=== PATIENT | male | born 2000 | race Caucasian/White ===

== ENCOUNTER 2021-01-28 06:52 | Outpatient (RCR) | payer BC, SELFPAY | END 2021-03-16 23:59 | LOC: IMMUN 06:52 | PROVIDERS: PCP Pediatrics; Referring Provider Family Medicine; Visit Provider Family Medicine | DX: Z23 Encounter for immunization (principal) | CPT/HCPCS: 0001A; 0002A; 91300 ==

== ENCOUNTER 2021-05-29 01:18 | Emergency (ER) | payer BC, SELFPAY ==
[2021-05-29 01:22] VITALS: BP 152/97; PULSE 112; RESP 16; TEMP 36.6; O2SAT 99; BMI 19.8
--- NOTE | 2021-05-29 01:32 | RAD_ITS ---
STUDY: X-RAY - LEFT FOOT CLINICAL: Male, 20 years old. Injury -- attn: 5th toe TECHNIQUE: 3 view(s) of the foot. COMPARISON: None. FINDINGS: Normal talus, calcaneus, and tarsal bones. Normal visualized subtalar, talonavicular, calcaneocuboid, tarsal and tarsometatarsal articulations. Normal metatarsi. Normal metatarsophalangeal joint of the great toe. Normal tibial and fibular sesamoid bones. Normal interphalangeal joint of the great toe. Normal phalanges of the great toe. Normal second through fifth metatarsophalangeal joints. Normal interphalangeal joints and phalanges of the lesser toes. The soft tissue structures are unremarkable. There is no demonstrated fracture. RAD/Foot min 3 Views IMPRESSION: Normal x-ray examination of the foot. Electronically Signed: Eliseo Bhagat MD at 2:05 EDT Tel , Service support ,
--- NOTE | 2021-05-29 01:33 | ED.VIS.LOWEX ---
HPI History of Present Illness Chief Complaint: Lower Extremity Injury Informant: patient Occured/Mechanism Mechanism/Context: Yes blunt trauma Comment: Accidentally ran into the corner of his door with his left small toe Onset/Context/Timing Context: Sudden Onset Timing: Continuous Quality of Pain: Aching and Throbbing Location: Left small toe Current Severity: Moderate Maximum Severity: Severe Worsened by: Walking, palpation, movement Relieved by: Remaining still Associated Symptoms Associated Symptoms: Negative for Parasthesia, Weakness and Loss of Funtion Narrative Narrative: Patient thinks his toe bent underneath his foot and in a varus type deformity when he accidentally hit it against his door. No bleeding but it is bruised. [facility] Medical History ADHD Anxiety Bipolar disorder Depression Home Medications dextroamphetamine-amphetamine [Adderall XR] 5 mg PO DAILY 05/29/21 [History Last Taken Unknown] sertraline 50 mg PO DAILY 05/29/21 [History Last Taken Unknown] Allergy/AdvReac Type Severity Reaction Status Date / Time bee venom protein (honey bee) Allergy Anaphylaxis Verified 05/29/21 01:19 Social History Smoking Status: Never smoker ROS ROS ED Constitutional Constitutional ED: Denies chills or fever(s) Musculoskeletal Musculoskeletal: Reports extremity pain; Denies neck pain Integumentary Denies Abrasions, rash or wounds Neurologic Neurologic: Denies paresthesias or weakness EXAM Physical Exam Const Vital Signs: 05/29/21 01:22 Temperature 97.9 F Temperature Source Temporal Pulse Rate 112 H Respiratory Rate 16 Blood Pressure 152/97 H Blood Pressure Mean 115 Pulse Ox 99 Positive well nourished and well developed General Appearance ED: well developed and NAD Neck full ROM and supple Back/Spine normal ROM and normal to inspection Extremity Extremity Narrative: Entire left little toe is very tender and swollen, no deformities, ecchymosis progresses to around the MTPJ, the nearby joints are nontender and nearby toes are nontender. Midfoot is nontender, base of the fifth metatarsal is nontender. No other injuries. Neuro oriented x3, no focal motor deficits and no sensory deficits noted Sensorium / Orientation: alert Psych mental status grossly normal and thought process normal Skin no wounds Skin Narrative: Left little toe: Skin intact, significant ecchymosis and swelling. Rashes: no rashes MDM MDM MDM Narrative Medical decision making narrative: My interpretation 3 view x-ray of the left foot shows no acute fracture or dislocation. There is a question of a very small nondisplaced crack at the end of the tuft but it is difficult to see with the overlying nail even on multiple views, and there is no cortical disruption so I think it is probably not a fracture. This area is no more tender than the rest of his toe. Placed in a postop shoe, given Naprosyn, and instructions for supportive care. Able to walk out of ED without any difficulty w/ shoe. Radiography Diagnostic Testing: Radiology Impression Foot X-Ray 05/29/21 01:32 IMPRESSION: Normal x-ray examination of the foot. Electronically Signed: Eliseo Bhagat MD at 2:05 EDT Tel , Service support , Discharge Plan Triage Chief Complaint: Lower Extremity Injury ED Provider: Marcial Almonte Dx/Rx/DC Orders Clinical Impression: Contusion of fifth toe, left Instructions: ED Foot Contusion Prescriptions: No Action sertraline 50 mg tablet 50 mg PO DAILY RF: 0 dextroamphetamine-amphetamine [Adderall XR] 5 mg Capsule,Extended Release 24hr 5 mg PO DAILY RF: 0 Primary Care Provider: Edilson Coreas Referrals: Edilson Coreas MD [Primary Care Provider] - Debra Lechuga DPM [STAFF PHYSICIAN] - As Needed Activity Restrictions/Additional Instructions: Take ibuprofen as needed for pain, ice affected area when resting to limit bruising and swelling. Use postop shoe for as long as you need to limit bending of the toes while walking. Disposition Disposition: Home, Self Care Discharge Date/Time: 05/29/21 02:14
[2021-05-29] MEDS: Naproxen 250 MG Tablet 500 MG PO (02:09)
== END 2021-05-29 02:14 | disposition home or self-care (01) ==
LOC: ED 02:02
PROVIDERS: Emergency Provider Emergency Medicine; PCP Pediatrics
DX: S90.122A Contusion of left lesser toe(s) without damage to nail, initial encounter (principal); W22.09XA Striking against other stationary object, initial encounter; Y93.9 Activity, unspecified; Y92.9 Unspecified place or not applicable; Y99.9 Unspecified external cause status; F31.9 Bipolar disorder, unspecified; F41.9 Anxiety disorder, unspecified; F90.9 Attention-deficit hyperactivity disorder, unspecified type; Z79.899 Other long term (current) drug therapy
CPT/HCPCS: 73630; 99283

== ENCOUNTER 2021-06-10 09:00 | Outpatient (RCR) | payer BC, SELFPAY ==
--- NOTE | 2021-06-10 09:10 | BH.SGPN.GN ---
Behaviors/Verbalizations/Mental Status: [] Eye contact is good. Motor activity is appropriate. Appearance is casual. Speech is Appropriate. Mood is depressed. Affect is flat. Thoughts are linear and logical. No evidence of psychosis. Reviewed daily check in sheet and no reports of suicidal ideations or intent. Client Response/Progress/Benefit: [] Pt participated when prompted. Attentive. Did not provide feedback to peers. Today was pt?s first day in IOP. Shared that he is stressed very easily and struggles with depression and anxiety. Started IOP to gain better control over his emotions which he believes will help with work and social life. No progress noted as this was pt?s first day in IOP. Will continue in IOP to prevent decompensation, stabilize mood, and increase healthy coping skills. Narrative Note: []
--- NOTE | 2021-06-10 10:10 | BH.SGPN.GN ---
Behaviors/Verbalizations/Mental Status: []Eye contact is good. Motor activity is appropriate. Appearance is neat. Speech is Appropriate. Mood is dysthymic. Affect is constricted. Thoughts are linear and logical. No evidence of psychosis. Client Response/Progress/Benefit: []Pt participated at times during group discussion, often nodding during discussion. Active during group activity. Attentive during psychoeducation. Pt provided insight and feedback during group discussion on how social supports can be similar to a safety net, the importance of social supports, benefits of social supports, and how strong or poor social supports impact our mental health. Pt provided examples of supports such as family and friends. Worked well with peers in experiential activity and provided ideas. Benefited from increased awareness of the benefits of social support and the importance of maintain a balanced support system. Pt has been on telehealth this week due to recent COVID diagnosis. Pt?s first day of IOP tx. Will continue IOP tx to prevent decompensation, learn healthy coping skills, and improve daily functioning. Narrative Note: []
--- NOTE | 2021-06-10 11:11 | BH.SGPN.GN ---
Behaviors/Verbalizations/Mental Status: []Client alert and oriented, casually dressed and groomed. Eye contact good. Motor activity appropriate. Speech within normal limits. Affect congruent, mood anxious and depressed. Thoughts linear, logical, no signs of hallucinations or delusions. Client Response/Progress/Benefit: []Client new to IOP tx and did well to remain an active participant throughout AEB contributing to discussion and taking notes. Client participated in the group activity highlighting the various barriers to effectively utilizing supports and strategies for improving support. Did well to encourage fellow participants throughout. Participated in discussion on the 5 ways our supports can support us (emotional, tangible, affirmational, network/belonging, and instructional) and the group listed examples for all types. Client reports wanting to work on increasing affirmational support as client feels this will help him feel more motivated and continue to hold himself accountable. Client plans to do this by making more of an effort to track daily activities in a journal, create small chore completion goals, and seek support from his counselor. Client seemed to benefit from identifying the type of support and how this support will aid in promoting overall mental wellness. Will continue IOP tx to prevent decompensation, continue to promote mood stability, and improve daily functioning. Narrative Note: []
--- NOTE | 2021-06-11 09:04 | BH.SGPN.GN ---
Behaviors/Verbalizations/Mental Status: Client alert and oriented, casual dress. Eye contact good. Motor activity appropriate. Speech within normal limits. Affect congruent, mood euthymic. Thoughts linear, logical, no signs of hallucinations or delusions. Reviewed client?s symptom tracker, no signs of suicidal ideation, plan, or intent as of today. Client Response/Progress/Benefit: Client was attentive and willing to share in group this date. Client stated that his emotion of the day to be grateful, and discussed skills used to combat feelings of anxiety and depression such as taking medications consistently, using a stress ball, and communicating to others his feelings. Client participated in group discussion and seemed to benefit from supportive group environment. Client provided good insight in identifying to focus on things he can control. Will continue IOP tx to promote healthy coping skill usage, improve anxiety and depression management, and prevent decompensation. Narrative Note: []
--- NOTE | 2021-06-11 10:10 | BH.SGPN.GN ---
Behaviors/Verbalizations/Mental Status: []Eye contact is fair. Motor activity is appropriate. Appearance is casual. Speech is Appropriate. Mood is anxious. Affect is constricted. Thoughts are linear and logical. No evidence of psychosis. Client Response/Progress/Benefit: []Pt was an engaged participant in group discussions. Attentive and provided insights during psychoeducation on benefits and disadvantages of anxiety and review of different types of Anxiety Disorders (Social Anxiety, CRYSTAL, OCD, PTSD, and Separation Anxiety). Completed worksheet on identifying his own physical symptoms or signs of anxiety which pt identified were headaches and increased appetite. Pt stated when he views a stressor or task as insurmountable it increases his anxiety. Benefited from increased awareness of physiological signs of anxiety as well as differences between 'normal' anxiety and anxiety disorder. Will continue in IOP to decrease anxiety, improve healthy coping and prevent decompensation. Narrative Note: []
--- NOTE | 2021-06-11 11:15 | BH.SGPN.GN ---
Behaviors/Verbalizations/Mental Status: []Client alert and oriented, neatly dressed and groomed. Eye contact good. Motor activity appropriate. Speech within normal limits. Affect constricted, mood dysthymic. Thoughts linear, logical, no signs of hallucinations or delusions. Client Response/Progress/Benefit: []Client was an active participant in group discussion and providing good insight to peers. Reviewed safety behaviors he engages in that reinforce anxiety. Client reports he also struggles with OCD and has compulsions around cleaning. Attentive during psychoeducation on mindfulness coping skills and their impact on mental health wellness. The group worked together to brainstorm anxiety reduction strategies. Client shared he wants to get back into reading as a form of mindfulness. Client seemed to benefit from increased repertoire of anxiety reduction skills. Client will continue IOP tx to prevent decompensation, increase emotional awareness, and gain healthy coping skills. Narrative Note: []
--- NOTE | 2021-06-15 09:10 | BH.SGPN.GN ---
Behaviors/Verbalizations/Mental Status: [] Eye contact is good. Motor activity is appropriate. Appearance is neat. Speech is Appropriate. Mood is depressed. Affect is flat. Thoughts are linear and logical. No evidence of psychosis. Reviewed daily check in sheet and no reports of suicidal ideations or intent. Client Response/Progress/Benefit: [] Pt participated when prompted. Attentive. Does not provide feedback to peers. Emotion for today is tried. Notes that he did sleep well last evening. Mental health wins were ? I don?t know been just trying to be easygoing?. Reports that he is working on accepting emotions such as anger rather than working hard to ?male them go away?. Feels that this has been helpful at times. Progress noted per pt report. Benefited from group support and encouragement. Will continue in IOP to prevent decompensation, stabilize mood, and increase healthy coping skills. Narrative Note: []
--- NOTE | 2021-06-15 10:06 | BH.SGPN.GN ---
Behaviors/Verbalizations/Mental Status: [] Client alert and oriented, casually dressed and groomed. Eye contact fair to good. Motor activity appropriate. Speech within normal limits. Affect congruent, mood anxious and depressed. Thoughts linear, logical, no signs of hallucinations or delusions. Client Response/Progress/Benefit: [] Pt was well engaged in group AEB taking notes and listening attentively throughout. Attentive during psychoeducation and discussed the importance of goal-setting with the group. Pt indicated ?You could relapse or give up if don?t see progress along the way?. Group identified potential benefits of having goals include: they motivate, increase self-esteem, and are needed to have progress, give a sense of accomplishment, and provide a sense of purpose. Group also worked together to identify barriers to goal-setting which included; negative self-talk, lack of motivation, unrealistic expectations, and procrastination. Pt identified personal barrier as unrealistic expectations of himself and ?trying to be perfect?. Shared that perspective challenging has helped him to overcome this in the past. Benefited from increased awareness of benefits and barriers to goal-setting. Pt will continue in IOP to prevent decompensation, reduce depressive and anxiety sx, and improve daily functioning. Narrative Note: []
--- NOTE | 2021-06-15 11:15 | BH.SGPN.GN ---
Behaviors/Verbalizations/Mental Status: []Client alert and oriented, casually dressed and groomed. Eye contact good. Motor activity appropriate. Speech within normal limits. Affect constricted, mood dysthymic. Thoughts linear, logical, no signs of hallucinations or delusions. Client Response/Progress/Benefit: []Pt was an active participant in group discussions and activities. Engaged in activity. Pt identified a SMART goal for the next week is spend at least 2 hours with family 3-4 days a week. reported this would benefit his mental health by decreasing isolation and being around positive people. Identified time, anxiety, depression and work as potential barriers to accomplishing goal. Pt able to identify several solutions that can help him overcome identified barriers. Benefited from group by being able to utilize SMART educate to create a goal. Pt to continue IOP to stabilize moods, increase healthy coping and prevent decompensation. Narrative Note: []
--- NOTE | 2021-06-16 09:45 | BH.NA_ITS ---
Physical Data - Vital Signs Pulse Rate: 68 Blood Pressure: 117/63 - Height/Weight Height: 1.88 m Weight:: 68.039 kg Weight in Pounds: 150.0 lbs Current Medication Compliance - Medication Compliance Do you take your medication as prescribed?: Yes - restarted medications about 2 months ago Nutritional History - Appetite Nutritional Instructions:: If client shows signs of a swallowing problem, weight change of 10 pounds or more in the last month, or is on a diabetic diet, the physician will review and request a dietitian consult, as appropriate. All unintentional weight loss will be referred to the physician for decision on need for dietitian consult. Describe your appetite:: Good Have you noticed a change in your eating habits lately?: No Functional Assessment - Sleep Pattern Describe any problems with sleeping: Client states he sleeps about 8 hours per night. - Activities Motor Activity:: Functional Sensory/Communication Assess - Communication Problems Do you have difficulty understanding what people are saying?: No Medical Problems/History - Respiratory Conditions Respiratory: Asthma - uses inhaler PRN before exercise - Pain Assessment Do you have acute or chronic pain?: No - Additional History Additional comments:: anxiety, depression, recently diagnosed with bipolar disorder, ADHD Surgical History - Surgical History Have you had any surgeries? If so, list type and date:: Yes - 5th digit on hand repair Substance Abuse - Substance Abuse Please describe substance abuse in the last 30 days:: Client denies alcohol, tobacco or caffeine use. Client states he uses marijuana 1-2 times every 2 weeks for stress. Client states he has anxiety about social situations and mainly uses marijuana to help with anxiety relating to that. Mental Status Summary - Mental Status Significant Findings/Observations on Appearance and Mood:: Client is alert and oriented x 4. Client is casually groomed and wearing a mask due to Covid19 pandemic. Client makes good eye contact. Client's voice has normal rate and volume. Client has appropriate affect. Client makes logical associations. Client reports some visual hallucinations but states they have improved since starting back on his medication in the last couple of months. Client denies SI. Suicide Assessment - Suicidal Ideation Are you currently or have you been suicidal in the past?: Yes - client denies SI at this time. Suicidal Intentional Rating Scale (SIRS): Suicidal thoughts (past) Physician Notification: If Active suicidal thoughts/Will not contract for safety is checked, contact physician and document in the Physician Notification section below. Assault History/Potential Past Psychiatric History - MH Treatment Hx Past Psychiatric Medications:: Zoloft, Adderall Age of first mental health symptoms: Client states he first felt symptoms of anxiety and depression around 5th grade but did not share that with his doctor until this year. Client was recently hospitalized in January 2021 and was diagnosed with bipolar disorder. Describe (age, circumstance, etc) any past hospitalizations: January 2021 was hospitalized at [facility] for SI and command hallucinations Current providers for mental health treatment (counselor, psychiatrist, case packer and sealer, etc.): [facility] for psychiatry Fall Risk Assessment - Age Age: Less than 60 - Mental Status Mental Status: Willing & able to ask for assistance when needed - Physical Status Physical Status: No problems - Impairments Impairments: None - Elimination Elimination: Continent AND independent - Gait or Balance Gait or Balance: Walks independently - Hx of Falls History of falls in the past 6 months: No known history - Medications/Substances Psychotropics:: Antidepressants, Antipsychotics, Anticholinergics (e.g. benztropine) Medications/substances used within the past 24 hours or ordered to administer: 3 or more of the medications/substances listed above - Total Score Total Points:: 2 RN Summary of Impressions - Impressions Recommendations: Include psychiatric and medical issues, treatment planning recommendations, and discharge planning needs. Impressions: Psychiatric Issues: 1. Bipolar, NOS. 2. Generalized anxiety disorder. 3. ADHD. 4. History of marijuana use disorder. 5. Cluster B traits. 6. Asthma - Level of Care How do the client's current symptoms and functional deficits support need for this level of care?: Client was referred to [facility] after hospitalization at [facility] in January 2021, but did not follow through with beginning the program until now. Client was hospitalized with SI and was having command hallucinations. Client stopped taking his medications for a few months and recently restarted his medications about 2 months ago. Client states now while on his medications, he has noticed a decrease in the hallucinations and can usually tell what is real and what is not. Client denies command hallucinations but states he at times has visual hallucinations (seeing something out of the corner of his eye and looking again and its not there, seeing things on his phone screen). Client reports his sleep has improved since he started his medication again. Client reports anxiety is currently his biggest stressor, stating he has extreme anxiety about going places and social situations. Client states marijuana helps him relax when he is stressed due to his anxiety. Client also endorses decreased energy, erratic moods, and anhedonia. Client denies SI. IOP will promote gains and prevent further decompensation while providing social support and skills training.
[2021-06-16 10:18] VITALS: BP 117/63; PULSE 68
--- NOTE | 2021-06-16 11:15 | BH.SGPN.GN ---
Behaviors/Verbalizations/Mental Status: []Client alert and oriented, casually dressed, hygiene appeared to be tended to. Eye contact fair. Motor activity appropriate. Speech within normal limits. Affect constricted, mood anxious. Thoughts linear, logical, no signs of hallucinations or delusions. Client Response/Progress/Benefit: []Client engaged participant AEB pt provided some input during small group discussion, taking notes and listening attentively to others. Group brainstormed strategies to combat social and perceived stigma which included: educating others, no longer using negative language about mental illness, being open about mental health, and not reinforcing stigma with behaviors or labels. Client stated he will attempt to decrease mental health stigma by sharing about his mental health to one of his friends. Appeared to benefit from increasing awareness of strategies to combat stigma. Will continue IOP tx to continue use of healthy coping, decrease anxiety and prevent decompensation.
--- NOTE | 2021-06-16 12:54 | BH.PSY.EVA_ITS ---
Psychiatric Evaluation Initial Evaluation Initial Evaluation: History of Present Illness: [] The patient is a 20-year-old single male with a recent diagnosis of bipolar disorder who was referred to the [facility] behavioral health IOP program after being discharged from [facility]. The patient was voluntarily admitted to [facility] for psychiatric reasons from January 22 to January 28, 2021. He was then referred to the [place] IOP program and was supposed to do the program in February and March but he did not follow-up with us. The patient states that he was admitted to [facility] for suicidal ideation and depression. For the past 2 months the patient has been living with his older sister in a condominium they rent from his parents. 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 For primary support the patient has his adoptive parents as he was adopted from [facility] at age 4. After the patient was discharged from [facility] in January 2021 he said the medications helped him but he discontinued them several months ago and his symptoms gradually returned. His mood became very erratic and irritable and he states that his mood would vary from being very down and depressed and irritable to being feeling on top of the world. His symptoms of hypomania include getting 3- 4 his hours of sleep and not feeling tired and getting a lot done. He says that he thinks his mother notices when he gets like this but it only lasts less than 3 days and sometimes the feeling on top of the world lasts only 5 or 10 minutes. The patient's biggest stress right now is growing up and being able to support himself and and work hard. Patient admits to using marijuana about once every 2 weeks now. He denies any command hallucinations ever in his entire life and states that he thinks he was misunderstood when he was admitted to the hospital. He says he has never heard voices ever but he did have thoughts at the time and his thoughts were telling him to kill himself because he was suicidal but these were not voices that he heard it was his own thoughts. The patient does admit to having visual illusions 3 or 4 times a month where he the side of his eye thinks he sees a shadow but then it turns out to be work. In January 2021 he did cut and burned himself 1 time but only 1 time and has had no self-harm urges recently. Patient restarted his medications on May 03, 2021 and has been compliant with them. He states that they have helped and his symptoms are better now. He denies being depressed since 2 weeks ago. He still occasionally irritable. But much less mood swings now. He is now starting to enjoy sports and friends again and he is enjoying the IOP program. His appetite is okay and his sleep is now 8 hours a night but it. It was disrupted before. He has a somewhat low energy level and difficulty with concentration. He denies hopelessness and worthlessness. He sometimes feels guilty that because he wants to give 100% all the time. He is a worrier by nature and he has social anxiety and feels stressed. He used to get panic attacks a few times a week off his medications but now he is getting a panic attack only once a month. He has some traits of OCD around cleanliness of his car in his bedroom but no OCD. He denies eating disorder, trauma or PTSD. The patient says that he is not suicidal now except for fleeting passive suicidal ideation. He denies passive thoughts of . He denies homicidal ideation. He denies hallucinations ever and says he has never heard voices and feels he was misunderstood when he was admitted to the hospital. Current Psychiatric Medications: [] Abilify 5 mg p.o. nightly (x5 weeks now); Remeron 30 mg p.o. nightly; Cogentin 0.5 mg p.o. twice daily Past Psychiatric History: [] 1 psychiatric admission as dictated above in January 2021. He has had self interrupted suicidal gestures in the past including in January 27, 2021. He had an attempt to drown himself in the bathtub in 2017 but never told anyone. He tried to suffocate his head and a pillow in 2016 but was unsuccessful and never told anyone for years. He was diagnosed with ADHD in fourth grade and took stimulant medications until 2 years ago and they helped him. He was first depressed at age 11 and denies any hallucinations ever. He first took psychiatric medications in January 2021 while admitted to [facility]. He had counseling at age 14 for depression because he asked his parents if you go to counseling but he only went for 1 week and then stopped and did not feel was that helpful. Substance Use History: [] No cigarette use. From 12th grade to March 2021 the patient use marijuana daily up to twice a day. He first used marijuana at age 19 but then he decrease marijuana use to 1-2 times every 2 weeks and that his current use. He does not use alcohol because he does not like it. No other drug use and no vaping. No rehab ever. Allergies: [] Bee venom Medications: [] Albuterol inhaler, doxycycline for acne plus psych meds as dictated above. Past Medical History: [] Asthma, 1 finger surgery as a child. He is sexually active with no problems. Family Psychiatric History: [] The patient was adopted from [facility] at age 4 so he only knows adoptive parents. He does not have any biological family history. Personal/Social History: [] He was born in [facility] and was adopted from [facility] at age 4. His adoptive parents are and loving. He denies any verbal, physical or sexual abuse ever. He has 2 siblings who are also adopted. He has an adopted brother 2 years older than him and an adopted sister 1-year-old and then him and they are very close. He was diagnosed with ADHD in fourth grade so school was somewhat difficult for him but when he took stimulants it helped him. He graduated high school but did not go to college and has worked for his dad's company for the past 3 years. He played sports in high school and medical middle school and had friends. He is heterosexual and had 1 serious girlfriend of 7 months in 2019 which was his longest girlfriend. He now has a girlfriend of 3 days who he is talking to online and hopes to see in person soon. Legal History: [] No arrests. No longterm. No . Has armor reconnaissance vehicle driver's license. No DUIs. Review of Systems: [] Negative except as noted in present illness. Vital Signs: [] Reviewed in nurses notes. Mental Status Examination: [] Patient is a 20-year-old male who is seen wearing a mask due to the pandemic and appears normal for stated age and is casually dressed and groomed with good hygiene. He has a tattoo of the solar system on his left posterior forearm. He has no psychomotor agitation or retardation. He is cooperative during the interview. Eye contact is good and speech is normal rate and rhythm and fluent with no pressure. Mood is depressed. Affect is constricted. Thought process is goal-directed and organized. Thought content: There is evidence of fleeting suicidal thoughts. There is no evidence of passive thoughts of , active suicidal ideation, plan for suicide, homicidal ideation, hallucinations or delusions. Reality testing is intact. Intelligence is average. Judgment is intact. Insight is good. Diagnoses: [] 1. Bipolar, NOS 2. Generalized anxiety disorder 3. ADHD 4. History of marijuana use disorder 5. Cluster B traits 6. Asthma Plan: [] The patient will start the IOP program in behavioral health at [facility] as the structure, support, education, and group therapy will hopefully prevent worsening of the patient's symptoms that might require rehospitalization. He felt safe during the interview and if it anytime he does not feel safe he will let us know or go to the emergency room. The risks, options, possible complications and side effects of the medications were discussed with the patient and he understands and accepts these. No medication changes were made today as the patient restarted his medicine 1 month ago and has had significant improvement. I will see the patient in follow-up in 1 to 2 weeks and he will continue to follow-up with his outpatient medical and psychiatric providers he will try to avoid marijuana use.
--- NOTE | 2021-06-16 13:09 | BH.DR.ITP ---
Initial Treatment Plan Patient Information Visit Information: ADMISSION DATE: EXPECTED LOS: 4-6 weeks Problems/Symptoms Problem #1:: Mood instability Symptom:: Depression, irritability, isolation, history of anhedonia, low energy, decreased concentration, history of decreased sleep, guilt, fleeting suicidal ideation Problem #2:: Anxiety Symptom:: Rumination, worry, social anxiety, panic attacks
--- NOTE | 2021-06-16 13:47 | BH.PSA ---
Suicide Assessment Treatment Plan Recommendations
--- NOTE | 2021-06-16 13:47 | BH.PSA_ITS ---
Suicide Assessment Treatment Plan Recommendations
--- NOTE | 2021-06-16 16:20 | BH.MDN ---
Multi-Disciplinary Note - Note 30-min Individual Time Started:: 12:10 Date: 06/16/21 Purpose of session/treatment goals addressed:: Purpose of session was to solidify treatment goals while in IOP. Eye Contact:: Fair Motor Activity:: Appropriate Appearance:: Casual Speech:: Appropriate Mood:: Anxious Affect:: Constricted Thoughts:: Linear, Logical, No evidence of hallucinations/delusions noted Staff Interventions:: psychoeducation on: - anxiety, mindfulness skills, rapport building, goal setting, taught coping skills - belly breathing and grounding tools Client Response:: Pt reported he has really enjoyed his first week in IOP. Pt stated he finds it helpful to hear from others that are experiencing similar things. Pt stated he has been working on his goal set in group of spending more time with his family. Pt stated it has been helpful to make himself be around others instead of isolating. Pt reported having close relationship with his parents and siblings. Pt stated he feels very grateful to have a healthy support group. Pt reported he does struggle with asking for help from his supports. Connected with discussion about ways to communicate to supports what he needs from them. Pt reported skills he currently uses to manage anxiety is stress ball, walking, breathing and talking with his mom. Pt stated depression has been better since starting his new medication two weeks ago. pt reported continuing to struggle with severe anxious symptoms. Pt stated he has a hard time going to grocery stores, restaurants and other social events. Pt reported triggered when he feels trapped or when it feels like everyone is looking at me. Pt stated he has left places before when feeling too anxious. Connected with education about impact of avoidance on anxiety. Pt attentive during education about belly breathing and grounding tools. Pt stated willingness to practice sitting with uncomfortable anxious feelings when in IOP group sessions. Pt reported goal for next group is to share at least one thought without being prompted by therapist. Risks/Concerns:: Denies suicidal/homicidal ideation, plan or intention. Progress Toward Goals/Plan:: Progress noted with pt reporting decrease in depressive symptoms and no suicidal ideations since hospitalization. Pt continues to report significant anxious symptoms and irritability at times. Pt to continue IOP to stabilize moods, increase healthy coping and prevent decompensation. Time Stopped:: 12:40
--- NOTE | 2021-06-16 21:44 | BH.MTP ---
Master Treatment Plan - Patient Information Program Physician:: Dr. Ramirez Primary Therapist:: Jackie Rosen, [facility] - Psychiatric Diagnoses Psychiatric Diagnoses:: 1. Bipolar, NOS. 2. Generalized anxiety disorder. 3. ADHD. 4. History of marijuana use disorder. 5. Cluster B traits. 6. Asthma Diagnosis Code(s):: F31.9 - Estimated LOS Estimated LOS (in weeks):: 6 Problem/Goal #1 - Problem/Goal #1 Stated Goal:: Client will reduce depressive symptoms and anhedonia due to Major Depressive Disorder through Intensive Outpatient Program. Description of Barriers: Pt's negative thinking, social anxiety, uncertanity about wanting to do IOP, anhedonia, apathy, and distorted thoughts could be possible barriers to treatment. Functional Impact: The patient is a 20-year-old single male with a recent diagnosis of bipolar disorder who was referred to the [facility] behavioral health IOP program after being discharged from [facility]. The patient was voluntarily admitted to [facility] for psychiatric reasons from January 22 to January 28, 2021. The patient states that he was admitted to [facility] for suicidal ideation and depression. After the patient was discharged from [facility] in January 2021 he said the medications helped him but he discontinued them several months ago and his symptoms gradually returned. His mood became very erratic and irritable, and he states that his mood would vary from being very down and depressed and irritable to being feeling on top of the world. Patient restarted his medications on May 03, 2021 and has been compliant with them. He states that they have helped and his symptoms are better now. He denies being depressed since 2 weeks ago. He still occasionally irritable. But much less mood swings now. He has a somewhat low energy level and difficulty with concentration. He is a worrier by nature and he has social anxiety and feels stressed. - Objectives Objective #1 Stated Objective: Client will learn and utilize 2-3 healthy coping strategies to manage depressive symptoms. Interventions: Therapist will utilize CBT techniques to assist client with understanding the connection between thoughts, feelings and behaviors. Education will be provided on behavioral activation. Therapist will assist client in learning internal coping strategies to manage depressive symptoms, along with helping client identify triggers. Discharge Criteria: Client will have achieved this goal when can verbalize and practiced at least 2 healthy coping strategies that successfully manage depressive symptoms. Target Date: 07/28/21 Review Date: 07/14/21 Objective #2 Stated Objective: Pt will decrease depressive symptoms AEB pt?s score on the DSM 5 cross-cutting measure and improve pt?s daily functioning. Interventions: Through groups and individual therapy, pt will be provided with education on cognitive distortions, mistaken beliefs, and identifying and combating negative self-talk. Therapist will assist pt with getting back into the activities she once enjoyed as well as increasing healthy coping strategies. Discharge Criteria: Pt will have met this goal when pt?s score on the DSM 5 cross cutting measure for depression has been decreased and per pt?s report daily functioning has improved. Target Date: 07/28/21 Review Date: 07/14/21 Problem/Goal #2 - Problem/Goal #2 Stated Goal:: Stabilize anxiety level while increasing ability to function on daily basis. Description of Barriers: Pt's negative thinking, social anxiety, uncertanity about wanting to do IOP, anhedonia, apathy, and distorted thoughts could be possible barriers to treatment. Functional Impact: The patient is a 20-year-old single male with a recent diagnosis of bipolar disorder who was referred to the [facility] behavioral health IOP program after being discharged from [facility]. The patient was voluntarily admitted to [facility] for psychiatric reasons from January 22 to January 28, 2021. The patient states that he was admitted to [facility] for suicidal ideation and depression. After the patient was discharged from [facility] in January 2021 he said the medications helped him but he discontinued them several months ago and his symptoms gradually returned. His mood became very erratic and irritable, and he states that his mood would vary from being very down and depressed and irritable to being feeling on top of the world. Patient restarted his medications on May 03, 2021 and has been compliant with them. He states that they have helped and his symptoms are better now. He denies being depressed since 2 weeks ago. He still occasionally irritable. But much less mood swings now. He has a somewhat low energy level and difficulty with concentration. He is a worrier by nature and he has social anxiety and feels stressed. - Objectives Objective #1 Stated Objective: Client will learn and implement 2-3 calming skills to reduce overall anxiety and manage anxiety symptoms. Interventions: Therapist will teach client calming/relaxation skills and assign client homework which practices relaxation skills daily. Discharge Criteria: Client will have achieved this goal when can verbalize at least 2 calming skills and implement those skills. Target Date: 07/28/21 Review Date: 07/14/21 Objective #2 Stated Objective: Pt will decrease anxious symptoms AEB pt?s score on the DSM 5 cross-cutting measure improve pt?s daily functioning. Interventions: Through groups and individual therapy, pt will be provided education about anxiety?s impact on body and common physiological reaction to anxiety. Therapist will teach pt appropriate breathing techniques and build healthy coping skills to manage daily anxieties. Discharge Criteria: Pt will have met this goal when pt?s score on the DSM 5 cross cutting measure for anxiety has been decreased and per pt?s report daily functioning has improved. Target Date: 07/28/21 Review Date: 07/14/21
--- NOTE | 2021-06-18 09:10 | BH.SGPN.GN ---
Behaviors/Verbalizations/Mental Status: [] Eye contact is good. Motor activity is appropriate. Appearance is casual. Speech is Appropriate. Mood is flat. Affect is depressed. Thoughts are linear and logical. No evidence of psychosis. Reviewed daily check in sheet and no reports of suicidal ideations or intent. Client Response/Progress/Benefit: [] Pt participated at times during the group discussion on empathy vs sympathy. Attentive. Emotion for today is excited. Daily symptom tracker notes 12/11 for anxiety. Shared with the group that he experienced significant anxiety yesterday which led him to call off from work. He struggled to elaborate on triggers as well as describing his anxiety. He woke up feeling anxious and restless. Utilized skills learned in IOP such as breathing and distractions which led to decrease in symptoms. Improved and then felt guilty about not going to work. Unable to identify any internal skills that he he used. Limited insight into what he learned from yesterday or information he could take to help him grow in the future. Benefited from group support and feedback. Will continue in IOP to maintain safety, stabilize mood, and increase healthy coping skills. Narrative Note: []
--- NOTE | 2021-06-18 10:10 | BH.SGPN.GN ---
Behaviors/Verbalizations/Mental Status: []Client alert and oriented, casually dressed and groomed. Eye contact fair. Motor activity appropriate. Speech within normal limits. Affect constricted, mood anxious. Thoughts linear, logical, no signs of hallucinations or delusions. Client Response/Progress/Benefit: []Client engaged participant as shown by active listening and contributing to discussion. Client contributed to the discussion of self-care and the consequences of not practicing self-care. Client helped the group discuss benefits of self-care. Worked with group to identify consequences of poor self-care which included: increased depression, increased anxiety, irritable, and difficulty functioning. Client participated in the discussion on debunking of myths about self-care. Client stated he struggles at asking for help and engaging in self-care because he tells himself I'm a burden. Client seemed to benefit from increased awareness of the importance of self-care and challenging common myths that prevent practicing self-care. Will continue IOP tx to decrease anxiety, increase healthy coping and prevent decompensation.
--- NOTE | 2021-06-18 11:18 | BH.SGPN.GN ---
Behaviors/Verbalizations/Mental Status: []Client alert and oriented, casually dressed and groomed. Eye contact good. Motor activity appropriate. Speech within normal limits. Affect congruent, mood depressed and anxious. Thoughts linear, logical, no signs of hallucinations or delusions. Client Response/Progress/Benefit: []Client engaged participant AEB client taking notes during discussion and listened attentively to peers. Participated in group discussion on the various areas of self-care, benefits, and types of self-care activities for each area. Client completed worksheet which identified current self-care practices and what self-care activities client wants to start using. Client shared doing best in the area of physical self-care and would like to improve upon social and financial areas of self-care. Identified plans to work on improving communication with supports as well as begin saving more consistently in order to do begin improving in these areas. Appeared to benefit from completing the self-care evaluation and gaining insights into current self-care practices, as well as identifying areas in which he would like to improve upon. Will continue IOP tx to prevent decompensation and continue to learn healthy coping skills. Narrative Note: []
--- NOTE | 2021-06-18 13:08 | BH.COMM ---
Communication Note - Communication with Client Communication Note: Mother called in and reports that pt had a possible seizure on 06/14/21 and wanted to know if pt had disclosed this to psychiatrist. Stated that pt reported horrible headache and then hands started to shake. Then loss muscle control and fell to the ground. Never loss consciousness. This lasted for less than 30 seconds per pt. After 30 seconds he reported feeling better. Pt nor family called 911 or went to the ER. Mom thought it could be related to his medications. Pt did not disclose this to Dr. Ramirez nor any staff this week. Called Dr. Ramirez who recommended that pt or pt's mother call his PCP immediately to discuss the event and determine the best course of action (ER or same-day appointment) to address event that occurred on 06/14/21 as pt requires a work-up. Dr. Ramirez wanted to stress to pt and mother that if this occurs again he should be taken to the ER. Communicated this to mother who reports she will follow up with his PCP today.
--- NOTE | 2021-06-21 09:05 | BH.SGPN.GN ---
Behaviors/Verbalizations/Mental Status: Eye contact is good. Motor activity is appropriate. Appearance is casual. Speech is Appropriate. Mood is anxious. Affect is constricted. Thoughts are linear and logical. No evidence of psychosis. Reviewed daily check in sheet and no reports of suicidal ideations or intent. Client Response/Progress/Benefit: Client was engaged and listening attentively throughout group session. Client reports emotion of the day as positive, stating that he is doing well. Client stated he set boundaries with multiple friends asking him to help them with things over the weekend. Client stated this was difficult as he likes helping others but doing too much is stressful. Appeared to benefit from group discussion regarding the difficulty of setting boundaries and the importance of them. Client identified using a stress ball to help him cope with the stress of setting boundaries. Client indicates his general mood as better per daily symptom tracker, stating agitation as moderate and anxiety and panic attacks as low-moderate. Client set goal of working on thinking about feelings and actions. Will continue IOP treatment to monitor medication changes, and improve functioning. Narrative Note: []
--- NOTE | 2021-06-21 10:08 | BH.SGPN.GN ---
Behaviors/Verbalizations/Mental Status: []Client alert and oriented, casually dressed and groomed. Eye contact fair to good. Motor activity appropriate. Speech within normal limits. Affect constricted, mood anxious. Thoughts linear, logical, no signs of hallucinations or delusions. Client Response/Progress/Benefit: []Client engaged in session AEB taking notes and contributing at least to discussion which was client?s identified goal. Client shared connecting with the importance of setting boundaries. Client attentive as group identified the benefits of setting boundaries such as reduced stress, clearer guidelines and expectations, better able to get needs met, and increased self-esteem. Attentive and nodding throughout discussion on barriers to setting and maintaining healthy boundaries. Listened and engaged during psychoeducation on different types of boundaries, providing an example of healthy time boundaries. Client shared ? this could include being on time for things and showing up?. Client seemed to benefit from increased awareness of how boundaries impact mental health and the different types of boundaries there are. Progress noted in client increased engagement and reports of coping skill application. Will continue IOP tx to improve depression and anxiety sx management, continue to stabilize mood, and prevent decompensation. Narrative Note: []
--- NOTE | 2021-06-21 11:10 | BH.SGPN.GN ---
Behaviors/Verbalizations/Mental Status: []Client alert and oriented, casual dress, hygiene appropriate. Eye contact fair. Motor activity appropriate. Speech within normal limits. Affect constricted, mood anxious. Thoughts linear, logical, no signs of hallucinations or delusions. Client Response/Progress/Benefit: []Client responded well to session, connecting with peers and receptive to supportive statements. Client engaged in the boundary self-assessment activity and attentive during psychoeducation on the different boundary styles. Client reported she most often uses porous boundary style. Client reported he is used to putting others first, which results in him not engaging in self-care. Client participated in brainstorming strategies to improve boundary setting. Client to continue IOP tx to increase healthy coping, challenging negative thoughts and prevent decompensation. Narrative Note: []
--- NOTE | 2021-06-22 15:52 | BH.COMM_ITS ---
Communication Note - Communication with Client Communication Note: Pt was scheduled to meet for individual session this cari hassan, however pt did not show for group. This service writer advisor contacted pt and he reported he forgot he had other things to get done today. Pt reported he will attend Monday and Monday of this week. Pt verbalized understanding he will not get a individual session this week because therapist is out for the week and he did not show today for their previously scheduled appointment.
--- NOTE | 2021-06-23 09:05 | BH.SGPN.GN ---
Behaviors/Verbalizations/Mental Status: Eye contact is good. Motor activity is appropriate. Appearance is casual. Speech is appropriate. Mood is anxious. Affect is congruent. Thoughts are linear and logical. No evidence of psychosis. Reviewed daily check in sheet with no reports of suicidal ideations, plan, or intent. Client Response/Progress/Benefit: Client was engaged and attentive during the group session. Client stated his emotion of the day as ?stressed?. Identified a stressor as forgetting to take his medication yesterday and experiencing increased anxiety and depression as a result. Indicated struggling with increased desire to isolate, however did report reaching out to a friend, which is progress. Additionally discussed people pleasing as a stressor, noting he struggles to tell others no and ends up taking on too much. Benefited from group support and discussion. Client indicated his general mood and ability to function has been worse per daily symptom tracker, stating depressed mood, anxiety, and agitation as moderate. Client and clinician identified a goal of utilizing opposite action to combat isolation. Will continue IOP to improve functioning, reduce isolation, and expand coping skill knowledge. Narrative Note: []
--- NOTE | 2021-06-23 10:15 | BH.SGPN.GN ---
Behaviors/Verbalizations/Mental Status: []Client alert and oriented, casually dressed and groomed. Eye contact good. Motor activity appropriate. Speech within normal limits. Affect constricted, mood depressed. Thoughts linear, logical, no signs of hallucinations or delusions. Client Response/Progress/Benefit: []Pt was an engaged though mostly passive participant in group discussion, providing some input and was attentive during psychoeducation. Participated in short activity about automatic thoughts and shared that mood and past experiences can impact automatic thoughts. Group was primarily educational; therapist introduced and gave examples of the 10 cognitive distortions. Benefited from education and increased awareness of cognitive distortions and role that they play in negative thoughts and emotions. Pt reported connecting with all or nothing thinking. Shared distortions such as all or nothing thinking has caused client to think he has to ?do this all on my own or suffer.? Will continue IOP tx to increase healthy coping skills, reduce isolation, and improve mood stability. Narrative Note: []
--- NOTE | 2021-06-23 12:08 | PCM.BH.PN ---
Progress Note Progress Note: History of Present Illness/Interim History: [] Patient is a 20-year-old male with a history of bipolar disorder who was seen in the [facility] 1 week ago. No medication changes were made that day. Several days ago the patient's mother called the IOP program and said that the patient had a seizure on June 14, 2021 which was 2 days before I saw him. The patient did not mention this at his initial appointment. Discussed with the patient today and went over the incident on June 14. Patient states that he was at home and it was around dinnertime and he was walking through the family room and fell to the ground and was shaking his arms and legs according to his mother. He says that he had a headache that was fairly uncomfortable 5 minutes before this happened and the headache persisted for 1 hour after the seizure. The patient did not remember the seizure until he remembers getting up from the floor. The patient's mother said he was awake during the incident that lasted about 30 seconds. He did not bite his tongue. He did not have any incontinence of urine during the .. He had normal food and liquid intake that day but he does remember that it was very hot outside. But the patient states he had been inside most of the day. He says that he gets headaches once in a while but the headache that they was worse than the other ones have been in different than his prior headaches. Patient denies any drug use that day except he used marijuana that morning. The patient states that his mother wanted him to go to the hospital after the incident but he refused to go because he does not like to be the center of attention. Mood zelaya the patient is relatively unchanged from 1 week ago. His mood is mildly depressed. His he denies suicidal ideation or homicidal ideation or hallucinations or delusions. The patient is not a very good historian and is difficult getting a good history from. When he was admitted to the hospital they felt he had command hallucinations but the patient states he never heard voices but it with his thoughts and he thinks they misunderstood him. He feels his mood is gradually improving and his appetite and sleep are normal. He feels the program is helping him. He denies any other symptoms related to the possible seizure. He has been taking his medications every day since I saw him 1 week ago when he had been taking the same medications for 5 weeks before he had the possible seizure incident. Current Psychiatric Medications: [] Abilify 5 mg p.o. nightly (x6 weeks now back on it); Remeron 30 mg p.o. nightly; Cogentin 0.5 mg p.o. twice daily Mental Status Examination: [] The patient is a 20-year-old male who appears normal for stated age and is seen wearing a mask due to the pandemic. He is casually dressed and groomed with good hygiene. He has no slow psychomotor agitation or retardation. He is alert and oriented to person place and time and he has a normal gait. Eye contact is good and speech is normal rate and rhythm and fluent with no pressure. Mood is euthymic to mildly depressed. Affect is constricted but ramos than last week. Thought process: Goal-directed and organized but gives vague answers to questions. Thought content: There is no evidence of passive thoughts of , suicidal ideation, homicidal ideation, hallucinations or delusions. Judgment is intact. Insight is good. Impulsivity is moderate. Diagnoses: [] 1. Bipolar, NOS 2. Generalized anxiety disorder 3. ADHD 4. History of marijuana use disorder 5. Cluster B traits 6. Asthma 7. Rule out incidence of seizure on June 14, 2021. Plan: Discussion was had with the patient that even though he does not have any sequela from the possible seizure incident on June 14 that I strongly recommended that he should call his primary care doctor and get in to see him for possible new onset seizure and severe headache. I do not feel the seizure was due to the medications as he had been taking them for a while. Discussed with the patient that we need to rule out severe causes of headache and possible seizure including tumor, aneurysm, electrolyte abnormalities and other. The fact that this happened 9 days ago makes the work-up more difficult. But he understands it is very important that he get into see his primary care doctor and see if the work-up is indicated for a one-time seizure and headache. The patient promises that he will call and make an appointment with his mom as she is his transportation. He will continue the IOP program also. He felt safe during the interview and if it anytime he does not feel safe he will let us know or go to the emergency room. The risk, options, possible complications and side effects of medications were again discussed with the patient and he understands and accepts these. No medication changes were made today. I will see the patient in follow-up in 1 to 2 weeks and he will continue to follow-up with his outpatient medical and psychiatric providers. He is counseled to decrease or eliminate marijuana use. He promises to call his primary care doctor today to get an appointment for a possible seizure he had 9 days ago.
--- NOTE | 2021-06-25 09:03 | BH.SGPN.GN ---
Behaviors/Verbalizations/Mental Status: []Eye contact is good. Motor activity is appropriate. Appearance is casual. Speech is Appropriate. Mood is euthymic. Affect is flat. Thoughts are linear and logical. No evidence of psychosis. Reviewed daily check in sheet and no reports of suicidal ideations or intent. Client Response/Progress/Benefit: []Pt receptive of session, participated when prompted during the group discussion, and willing to process with group. Emotion for today is reported as ?energetic? though did not attribute this to anything in particular. Did well to identify some small positives regarding improved anxiety management. Pt discussed his workday had ?initially started bad? as he had spilled pop on himself. Indicated struggling with distorted thoughts and fears of being judged afterwards, however was able to begin to use some skills to prevent this from escalating to point of panic. Notes taking a step away and taking a few deep breathes following the which was somewhat helpful, though continued to struggle with these thoughts for much of the remaining shift. Appeared to benefit from encouragement and supportive feedback regarding self-comparison provided by the group. Recommended continued IOP tx to improve consistent skill application, increase communication with supports, and continue to improve ability to identify and challenge anxious and negative thoughts about self. Narrative Note: []
--- NOTE | 2021-06-25 10:10 | BH.SGPN.GN ---
Behaviors/Verbalizations/Mental Status: [] Eye contact is good. Motor activity is appropriate. Appearance is casual. Speech is Appropriate. Mood is depressed. Affect is flat. Thoughts are linear and logical. No evidence of psychosis Client Response/Progress/Benefit: [] Pt was an active participant in group discussion. Attentive during psychoeducation on Conflict Styles ( Avoidant, Competing, Accommodating, and Cooperative). Participated in interactive group discussion on why we tend to avoid conflict. Pt along with peers identified several reasons conflict is often avoided which included; don't want to deal with it, anxiety, it can be awkward, can cause more problems, don't want to get hurt, don't want to hurt others, and fear of rejection. Pt along with peers also identified the reasons why we need conflict which included; helps us set boundaries, advocacy, helps us express needs/emotions, and can improve relationships. Conflict style he most often uses is accommodating. Benefited from increased awareness on conflict styles. Will continue in IOP to prevent decompensation, stabilize mood, and increase healthy coping skills. Narrative Note: []
--- NOTE | 2021-06-25 11:10 | BH.SGPN.GN ---
Behaviors/Verbalizations/Mental Status: []Client alert and oriented, neatly dressed and groomed. Eye contact good. Motor activity appropriate. Speech within normal limits. Affect constricted, mood dysthymic. Thoughts linear, logical, no signs of hallucinations or delusions. Client Response/Progress/Benefit: []Client engaged in session AEB contributing to discussion and engaging in activity. Client did well to review current conflict style and its impact on mental health. Acknowledged the impact being avoiding has on client?s mental health. Attentive and taking notes during discussion on strategies for more effectively managing conflict in personal life. Client participated in activity and did well to listen to suggestions as well as providing input. Client wants to work on asking himself why he upset and what he is feeling before addressing conflict. Appeared to benefit from gaining strategies to help client better manage conflict. Will continue IOP tx to reduce isolation, improve emotional regulation skills, and increase mood stability. Narrative Note: []
--- NOTE | 2021-06-28 09:05 | BH.SGPN.GN ---
Behaviors/Verbalizations/Mental Status: [] Eye contact is good. Motor activity is appropriate. Appearance is neat. Speech is Appropriate. Mood is depressed. Affect is flat. Thoughts are linear and logical. No evidence of psychosis. Reviewed daily check in sheet and no reports of suicidal ideations or intent. Client Response/Progress/Benefit: [] Pt spoke when prompted. Attentive. Daily symptom tracker notes 4/5 for depression and 3/5 for anxiety. Emotion for today is depressed. States I feel like others aren't listening to me Elaborated that he doesn't feel as if his family pays attention when he talks. This is related to everything from mental health to day to day events. He does feels listened to by his friends. Group provided some feedback and support which was beneficial. Pt did not share much other than this statement. Limited progress. Will continue in IOP to prevent decompensation, stabilize mood, and increase healthy coping. Narrative Note: []
--- NOTE | 2021-06-28 10:15 | BH.SGPN.GN ---
Behaviors/Verbalizations/Mental Status: []Client alert and oriented, casually dressed and groomed. Eye contact fair. Motor activity appropriate. Speech within normal limits. Affect constricted, mood anxious. Thoughts linear, logical, no signs of hallucinations or delusions Client Response/Progress/Benefit: []Pt was a mostly passive participant AEB pt not providing input during discussions. Attentive during psychoeducation and taking notes. Appeared to connect with topic of personal pitfalls and how they can impede mental health treatment progress. Pt and peers also discussed reasons why overcoming pitfalls is so challenging. During experiential activity pt along with peers identified several pitfalls from the activity that are also associated with mental health. Pt shared his personal pitfalls include: fear of failure, isolation, and all or nothing. Benefited from group by increasing awareness of pitfalls which can impact mental health. Pt will continue in IOP tx to decrease anxiety, decrease use of avoidant behaviors and prevent decompensation. Narrative Note: []
--- NOTE | 2021-06-28 14:48 | BH.MDN ---
Multi-Disciplinary Note - Note 45-min Individual Date: 06/28/21
--- NOTE | 2021-07-01 10:10 | BH.SGPN.GN ---
Behaviors/Verbalizations/Mental Status: [] Eye contact is good. Motor activity is appropriate. Appearance is casual. Speech is Appropriate. Mood is depressed. Affect is flat. Thoughts are linear and logical. No evidence of psychosis. Client Response/Progress/Benefit: [] Pt was an active participant in group discussion and activity. Attentive during psychoeducation on the stages of change. Pt participated in interactive discussion on emotions associated with change (happy, ecstatic, lonely, shocked, surprised, lonely, etc). Pt along with peers identified barriers that may prevent one from making change which included; stuck in routine, habits, fear, others, and responsibilities. Group able to identify the benefits to changes such as personal growth, feeling more positive, increased confidence, healthier environment, improved relationships, and obtaining goals. Benefited from increased awareness of emotions related to change, the change process, and benefits/barriers to change. Will continue in IOP to prevent decompensation, increase healthy coping, and stabilize mood. Narrative Note: []
--- NOTE | 2021-07-01 11:13 | BH.SGPN.GN ---
Behaviors/Verbalizations/Mental Status: []Client alert and oriented, casually dressed and groomed. Eye contact good. Motor activity appropriate. Speech within normal limits. Affect congruent, mood anxious, dysthymic. Thoughts linear, logical, no signs of hallucinations or delusions. Client Response/Progress/Benefit: []Client was an active participant AEB remaining attentive during discussion and taking notes throughout. Client participated during continued discussion and psychoeducation on the stages of change. Did well to process activity and work with group to relate the barriers and strategies used to overcome the barriers to managing change in own life. Receptive of psychoeducation on using a decisional balance sheet to address uncertainties associated with making changes. Client identified a change he is currently contemplating as ?starting to say ?No? to people?. Shared potential benefits of this change include: improved self-care, healthier boundaries, more ?me time?, and less exhausted. Discussed some potential costs preventing him from making this change as: potential to hurt someone?s feelings or disappoint them and less time spent hanging out with friends. Client appeared to benefit from reflecting on the benefits of changing vs. costs of not changing, as well as barriers to change and resources for addressing those barriers. Noted a resource for making change as: practicing saying no to feel more comfortable in doing it Pt recommended continued IOP tx to challenge unrealistic expectations of himself, improve healthy boundaries, and reduce negative self-talk. Narrative Note: []
--- NOTE | 2021-07-02 09:05 | BH.SGPN.GN ---
Behaviors/Verbalizations/Mental Status: Eye contact is good. Motor activity is appropriate. Appearance is casual. Speech is appropriate. Mood is euthymic. Affect is congruent. Thoughts are linear and logical. No evidence of psychosis. Reviewed daily check in sheet with no reports of suicidal ideations, plan, or intent. Client Response/Progress/Benefit: Client was attentive and engaged in group session. Client reported his emotion of the day as proud, as client discussed utilizing stress ball and coping skills to combat panic at work yesterday. Appeared to benefit from supportive group discussion regarding utilizing coping skills at work. Voiced stressor of family causing stress and discussed how he set boundaries to decrease this stress. Client stated that family was supportive in the boundary setting. Client indicated per daily symptom tracker that his mood has been generally better, and his anxiety, depression, and agitation have decreased from moderate-severe and moderate to low. Will continue IOP treatment to stabilize mood, prevent decompensation, and increase application of healthy coping skills. Narrative Note: []
--- NOTE | 2021-07-02 10:13 | BH.SGPN.GN ---
Behaviors/Verbalizations/Mental Status: [] Client alert and oriented, casually dressed and groomed. Eye contact fair to good. Motor activity appropriate. Speech within normal limits. Affect congruent, mood anxious and euthymic. Thoughts linear, logical, no signs of hallucinations or delusions. Client Response/Progress/Benefit: [] Client active participant AEB providing contributions during group discussion, taking notes, and appeared to listen attentively to peers. Client connected with the topic of relationships. Helped group discuss the benefits of relationships as well as the potential factors maintaining unhealthy relationships. Client stated that healthy relationships can result in longstanding connection even when the romantic relationship ends. It means we can have a support we can trust or go to for advice, and vice versa. Helped group identify the risk factors for unhealthy relationships which included: poor self-esteem, trauma, loneliness, learned behaviors, and not taking care of own mental health. Worked with group to develop a list of the consequences that unhealthy relationships have on mental health. Appeared to benefit from increasing awareness of the impact unhealthy relationships can have on mental health. Pt to continue IOP to continue to improve anxiety management, reduce avoidance and isolation, as well as continue to promote engagement with healthy activities. Narrative Note: []
--- NOTE | 2021-07-02 11:15 | BH.SGPN.GN ---
Behaviors/Verbalizations/Mental Status: []Client alert and oriented, casually dressed and groomed. Eye contact good. Motor activity appropriate. Speech within normal limits. Affect constricted, mood anxious. Thoughts linear, logical, no signs of hallucinations or delusions. Client Response/Progress/Benefit: []Client responded well to session, engaged and taking notes. Attentive during psychoeducation about characteristics of healthy, unhealthy and abusive relationships. Client identified within his relationships he does well with being respectful to others. Client stated he wants to work on improving his communication by being able to say no. Client reported he tends to not set boundaries which results in him taking on too much. Appeared to benefit from brainstorming strategies to build healthier relationships. Will continue IOP tx to increase self confidence, reduce avoidance behaviors and prevent decompensation. Narrative Note: []
--- NOTE | 2021-07-05 13:20 | BH.COMM_ITS ---
Communication Note - Communication with Client Communication Note: Talked with pt via phone when he did not show for IOP. Pt reported he was feeling sick. This automobile and property underwriter informed pt he needed to get covid tested with a negative result to be able to return to IOP in person. Pt expressed understanding.
--- NOTE | 2021-07-08 14:47 | BH.DS_ITS ---
Discharge Summary - Demographics Date of Admission:: 06/16/21 Discharge Date: 07/08/21 Presenting Problems at Admission:: The patient is a 20-year-old single male with a recent diagnosis of bipolar disorder who was referred to the [facility] behavioral health IOP program after being discharged from [facility]. The patient was voluntarily admitted to [facility] for psychiatric reasons from January 22 to January 28, 2021. The patient states that he was admitted to [facility] for suicidal ideation and depression. After the patient was discharged from [facility] in January 2021 he said the medications helped him but he discontinued them several months ago and his symptoms gradually returned. His mood became very erratic and irritable, and he states that his mood would vary from being very down and depressed and irritable to dariana ng feeling on top of the world. Patient restarted his medications on May 03, 2021 and has been compliant with them. At admission he stated that they have helped and his symptoms are better now. He denied being depressed since 2 weeks ago. endorsed some irritabiility, low energy and difficulty with concentration. Discharge Diagnoses:: 1. F31.9 Bipolar, NOS. 2. Generalized anxiety disorder. 3. ADHD. 4. History of marijuana use disorder. 5. Cluster B traits. Reason for Discharge:: Therapist met with treatment team and it was determined that client will be discharged from [facility] due to client's lack of attendance and no communication of further interest from client. - Treatment Progress During Treatment & Response: Mild to moderate progress noted AEB pt reporting improved mood stability, less irritability, decreased anxiety, and increased awareness of distorted thought patterns. Pt consistently attended [facility] until he stopped communication with IOP team. During group sessions pt was often a passive participant but did take notes and appeared attentive. Issues Still to be Addressed:: Pt could benefit from continued work on distress tolerance, decreasing avoidant behaviors towards anxiety provoking events, and continue to help pt identify and challenge negative thoughts. Pt could benefit from identifying strategies to help with faced with stressor or crisis. Discharge Recommendations/Instructions:: Client was encouraged to establish o utpatient counseling while in [facility], but it is not known if client reached out to any agencies. Discharge Handout: Complete Discharge Handout with client on aftercare options and continuity of care.
== END 2021-07-08 23:59 ==
LOC: BHIOP 09:00
PROVIDERS: PCP Pediatrics; Referring Provider Psychiatry & Neurology Psychiatry; Visit Provider Psychiatry & Neurology Psychiatry
DX: F31.89 Other bipolar disorder (principal); F41.1 Generalized anxiety disorder; F90.9 Attention-deficit hyperactivity disorder, unspecified type; J45.909 Unspecified asthma, uncomplicated; Z79.899 Other long term (current) drug therapy
CPT/HCPCS: S9480; 90832; 90834; 90853

== ENCOUNTER 2021-08-13 21:34 | Emergency (ER) | payer BC, SELFPAY ==
[2021-08-13 21:37] VITALS: BP 128/83; PULSE 102; RESP 16; TEMP 36.9; O2SAT 96; BMI 19.2
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
[2021-08-13 22:39] VITALS: BP 114/62; PULSE 88; RESP 16; TEMP 36.7; O2SAT 98
== END 2021-08-13 22:40 | disposition home or self-care (01) ==
PROVIDERS: Emergency Provider Emergency Medicine; PCP Family Medicine
DX: S16.1XXA Strain of muscle, fascia and tendon at neck level, initial encounter (principal); S00.03XA Contusion of scalp, initial encounter; V43.52XA Car driver injured in collision with other type car in traffic accident, initial encounter; Y93.9 Activity, unspecified; Y92.410 Unspecified street and highway as the place of occurrence of the external cause; Y99.9 Unspecified external cause status; J45.909 Unspecified asthma, uncomplicated; F31.9 Bipolar disorder, unspecified; F41.1 Generalized anxiety disorder; Z79.899 Other long term (current) drug therapy
CPT/HCPCS: 70450; 72125; 99284